=== PATIENT | male | born 1970 | race Caucasian/White ===

== ENCOUNTER 2018-11-02 14:19 | Emergency (ER) | payer SELFPAY ==
[~2018-11-02] VITALS: Ht 167.6 cm; Wt 65.0 kg
[2018-11-02 22:24] VITALS: BP 155/105
== END 2018-11-03 00:28 | disposition home or self-care (01) ==
LOC: EDBD 14:19 → ER 14:19
DX: F10.129 Alcohol abuse with intoxication, unspecified (principal); R41.82 Altered mental status, unspecified; F17.210 Nicotine dependence, cigarettes, uncomplicated; Y90.9 Presence of alcohol in blood, level not specified
CPT/HCPCS: 36415; 84484; 93005; 99284; 99406